=== PATIENT | male | born 1955 | race Caucasian/White ===

== ENCOUNTER 2017-04-18 09:15 | Emergency (ER) | payer SELFPAY ==
[2017-04-18 09:21] VITALS: BP 145/89; PULSE 75; RESP 16; TEMP 98.6; O2SAT 98
--- NOTE | 2017-04-18 09:49 | EDPHY ---
H & P Stated Complaint: unable to urinate since midnight Time Seen by Provider: 04/18/17 09:35 HPI/ROS: CHIEF COMPLAINT: Urinary retention since midnight HISTORY OF PRESENT ILLNESS: 62-year-old male arrives via private vehicle complaining of inability to urinate since midnight. No back or flank pain. No radiculopathy. No saddle anesthesia. No trauma. No new medications. No fever or chills. No genitalia trauma. No perineal pain. No rectal pain. No pain with defecation. Foot drop. PRIMARY CARE PROVIDER: no primary care provider REVIEW OF SYSTEMS: A ten point review of systems was performed and is negative with the exception of the items mentioned in the HPI PAST MEDICAL & SURGICAL HISTORY: No pertinent medical or surgical history SOCIAL HISTORY:nonsmoker PHYSICAL EXAM (Prior to examination, patient consented to physical exam, hands were washed and my usual and customary physical exam procedures followed) 1) GENERAL: Well-developed, well-nourished, alert and oriented. Appears uncomfortable, pacing . 2) HEAD: Normocephalic, atraumatic 3) HEENT: Pupils equal, round, reactive to light bilaterally. Sclera anicteric. 4) NECK: Full range of motion, no meningeal signs. 5) LUNGS: Clear auscultation bilaterally, no wheezes, no rhonchi, no retractions. 6) HEART: Regular rate and rhythm, no murmur, no heave, no gallop. 7) ABDOMEN: No guarding, no rebound, no focal tenderness, negative McBurney's, negative Lacy's, negative Rovsing's, negative peritoneal sign, unable to elicit any abdominal pain on exam 8) MUSCULOSKELETAL: Moving all extremities, no focal areas of tenderness, no obvious trauma. No peripheral edema or discoloration. Patella and Achilles reflexes are strongly equal bilaterally. Strength 5/5 9) BACK: No CVA tenderness, no midline vertebral tenderness, no fluctuance, no step-off, no obvious trauma, no visual or palpable abnormality. 10) SKIN: No rash, no petechiae. 11) : Normal male external genitalia no testicular pain, circumcised, cremasteric reflex present and brisk bilaterally , perineum nontender DIFFERENTIAL DIAGNOSIS: in no particular include but limited to cauda equina, bph, prostatitis - Personal History Current Tetanus/Diphtheria Vaccine: Unsure Current Tetanus Diphtheria and Acellular Pertussis (TDAP): Unsure - Medical/Surgical History Hx Asthma: No Hx Chronic Respiratory Disease: No Hx Diabetes: No Hx Cardiac Disease: No Hx Renal Disease: No Hx Cirrhosis: No Hx Alcoholism: No Hx HIV/AIDS: No Hx Splenectomy or Spleen Trauma: No Other PMH: denies - Social History Smoking Status: Never smoked Constitutional: Initial Vital Signs Temperature (C) 37.0 C 04/18/17 09:18 Heart Rate 75 04/18/17 09:18 Respiratory Rate 16 04/18/17 09:18 Blood Pressure 145/89 H 04/18/17 09:18 O2 Sat (%) 98 04/18/17 09:18 O2 Delivery Mode Room Air Allergies/Adverse Reactions: No Known Allergies Allergy (Unverified 04/18/17 09:18) Home Medications: Medication Instructions Recorded NK [No Known Home Meds] 04/18/17 Medical Decision Making ED Course/Re-evaluation: 9:50 a.m.: Bladder scan revealed greater than 800 cc of urine. Pineda catheter insertion by nursing staff subsequently with 1200 cc of red urine. Patient notes that he eats red beets on regular basis. 10:35 a.m.: Re-evaluation, he is feeling significant relief after Pineda catheter placement. He is requesting catheter be removed. Recommend leave the Pineda catheter in however he requested be removed. This will be removed and he has been informed that he may necessitate further catheter placement if he is unable to urinate spontaneously. 11:15 a.m. Re-evaluation. Patient has no complaints of back pain, is neurologically intact lower extremities. We discussed possible etiologies for his urinary retention. Doubt spinal pathology such as cauda equina. The patient has a Pineda catheter has been removed. He does not feel the need to urinate yet does not want to wait. I have recommend he wait so that we can ensure he is able to urinate spontaneously. He does not want to wait, states that he will return to the ER if he is unable to urinate. I believe him to have decision-making capacity.Care and management in consultation with secondary supervising physician Dr Johnson . - Data Points Laboratory Results: 04/18/17 09:50 Urine Color MADDI Urine Appearance CLEAR Urine pH 6.0 (5.0-7.5) Ur Specific Dille 1.009 (1.002-1.030) Urine Protein NEGATIVE (NEGATIVE) Urine Ketones 1+ H (NEGATIVE) Urine Blood 1+ H (NEGATIVE) Urine Nitrate NEGATIVE (NEGATIVE) Urine Bilirubin NEGATIVE (NEGATIVE) Urine Urobilinogen NEGATIVE EU EU (0.2-1.0) Ur Leukocyte Esterase NEGATIVE (NEGATIVE) Urine RBC 10-15 /hpf H /hpf (0-3) Urine WBC NONE SEEN /hpf /hpf (0-3) Ur Epithelial Cells NONE SEEN /lpf /lpf (NONE-1+) Urine Glucose NEGATIVE (NEGATIVE) Departure - Departure Disposition: Home, Routine, Self-Care Clinical Impression: Urinary retention Condition: Good Instructions: Urinary Retention in Men (ED) Additional Instructions: Return to the emergency department immediately if you develop back pain, fevers , inability urinate, testicular pain or any other symptoms that concern Referrals: Venancio Antony MD [Medical Doctor] - 04/21/17 (Dr. Antony Is a urologist)
[2017-04-18 09:59] LABS: COLOR AMBER; LEUKOCYTE ESTERASE,URINE NEGATIVE (NEGATIVE); NITRITE,URINE NEGATIVE (NEGATIVE)
[2017-04-18 10:10] LABS: WBC,URINE NONE SEEN /hpf (0-3)
== END 2017-04-18 11:31 | disposition home or self-care (01) ==
PROC: 0T9B70Z Drainage of Bladder with Drainage Device, Via Natural or Artificial Opening (ICD-10-PCS; principal; 2017-04-18)
DX: R33.9 Retention of urine, unspecified (principal)

== ENCOUNTER 2017-04-19 07:30 | Emergency (ER) | payer SELFPAY ==
[2017-04-19 07:35] VITALS: TEMP 98.1
--- NOTE | 2017-04-19 07:53 | EDPHY ---
HPI/HX/ROS/PE/MDM Narrative: CHIEF COMPLAINT: Urinary Retention HISTORY OF PRESENT ILLNESS: The patient is a 62-year-old male seen here yesterday with urinary retention who returns today with urinary retention. The patient had a Pineda catheter placed with 1200ccs of fluid drained. The patient requested the Pineda catheter be removed prior to discharge. He was able to urinate a few times at home. He has not been able to urinate at all since last night. He denies fever, flank pain, vomiting, diarrhea, headache, lightheadedness. REVIEW OF SYSTEMS: Aside from elements discussed in the HPI, a comprehensive 10-point review of systems was reviewed and is negative. PAST MEDICAL HISTORY: Denies. SOCIAL HISTORY: Nonsmoker. VITAL SIGNS: Reviewed by me GENERAL: Well-developed, well-nourished, resting comfortably in no respiratory distress. HEENT: Atraumatic. Eyes: No icterus, no injection. Mouth: moist mucous membranes. No erythema or lesions. Neck: supple with no adenopathy. LUNGS: Clear to auscultation bilaterally, no wheezes, rhonchi or rales. CARDIAC: Regular rate and rhythm, no rubs, murmurs or gallops. ABDOMEN: Soft, nontender, nondistended, bowel sounds normal. BACK: No CVA tenderness. EXTREMITIES: No trauma. No edema. Range of motion is normal throughout. NEURO: Alert and oriented, grossly nonfocal. SKIN: Warm and dry, no rash. PSYCHIATRIC: Normal mentation, no agitation. Portions of this note were transcribed by a medical assembly. I personally performed a history, physical exam, medical decision making, and confirmed accuracy of information the transcribed note. ED Course: Bladder scan performed by nursing staff shows 900ccs of fluid. Pineda placed by nursing staff with reported minimal resisted. No urine obtained. With palpation of the bladder, blood began to appear in the catheter but still no urine. The Pineda catheter was removed. 0838: I consulted the urologist, Dr. Antony, he will see the patient in the ED. 0945: Pineda catheter was placed by Dr Antony. UA demonstrates no sign of infection. I will discharge patient home with Pineda in place. He will followup with Dr. Antony. MDM: Diff dx considered included urinary retention, acute renal failure, obstruction , urethral stricture, bph, UTI. - Data Points Laboratory Results: Laboratory Results 04/19/17 08:40 04/19/17 08:40 Medications Given: Discontinued Medications Tamsulosin HCl (Flomax) 0.4 mg PO EDNOW ONE Stop: 04/19/17 09:50 Last Admin: 04/19/17 09:56 Dose: 0.4 mg General Initial Vital Signs: Initial Vital Signs Temperature (C) 36.7 C 04/19/17 07:31 Respiratory Rate 18 04/19/17 07:31 Blood Pressure 136/71 H 04/19/17 07:31 O2 Sat (%) 94 04/19/17 07:31 O2 Delivery Mode Room Air Allergies/Adverse Reactions: No Known Allergies Allergy (Unverified 04/18/17 09:18) Home Medications: Medication Instructions Recorded Tamsulosin HCl [Flomax] 0.4 mg PO DAILY #7 cap 04/19/17 Departure - Departure Disposition: Home, Routine, Self-Care Clinical Impression: Urinary retention Condition: Good Instructions: Urinary Retention in Men (ED), Pineda Catheter Placement and Care (ED) Additional Instructions: 1. Keep Pineda in place until you are seen by Dr. Antony. 2. Take the Flomax as directed. 3. Return to the Emergency Department with urinary complaints, catheter problems , or other complaints. Referrals: Venancio Antony MD [Medical Doctor] - As per Instructions (Urology) Prescriptions: Tamsulosin HCl [Flomax] 0.4 mg PO DAILY #7 cap
[2017-04-19 09:21] LABS: HEMATOCRIT 44.5 % (40.0-51.0); HEMOGLOBIN 15.6 g/dL (13.7-17.5); MEAN CELL HEMOGLOBIN 30.5 pg (27.9-34.1); MEAN CELL HEMOGLOBIN CONCENTR. 35.1 g/dL (32.4-36.7); MEAN CELL VOLUME 87.1 fL (81.5-99.8); RED BLOOD CELL COUNT 5.11 10^6/uL (4.40-6.38)
[2017-04-19 09:37] LABS: ANION GAP 23 mEq/L (8-16); CALCIUM 11.1 mg/dL (8.5-10.4); CARBON DIOXIDE 16 mEq/l (22-31); CHLORIDE 99 mEq/L (97-110); CREATININE 0.9 mg/dL (0.7-1.3); GLOMERULAR FILTRATION RATE > 60; GLUCOSE 111 mg/dL (70-100); POTASSIUM 3.8 mEq/L (3.5-5.2); SODIUM 138 mEq/L (134-144)
[2017-04-19] MEDS ORDERED: TAMSULOSIN HCL 0.4 MG CAP PO ONE (09:49)
[2017-04-19 10:13] VITALS: BP 93/60; PULSE 47; RESP 16; O2SAT 97
[2017-04-19 10:31] LABS: COLOR YELLOW; LEUKOCYTE ESTERASE,URINE NEGATIVE (NEGATIVE); NITRITE,URINE NEGATIVE (NEGATIVE)
[2017-04-19 10:38] LABS: BACTERIA TRACE /hpf (NONE SEEN); MUCUS TRACE /lpf (NONE-1+); RBC,URINE 50-182 /hpf (0-3); WBC,URINE NONE SEEN /hpf (0-3)
--- NOTE | 2017-04-20 20:43 | GCON ---
[f rep st] CONSULTATION DATE OF CONSULTATION: 04/19/2017 REFERRING PHYSICIAN: Kelsie Perez MD REASON FOR REQUEST: Inability to urinate, inability to place catheter. HISTORY OF PRESENT ILLNESS: The patient is a 62-year-old gentleman, who states that he has had inte rmittent trouble with urination for the last several months, however, he has never had this evaluate d. He came to the emergency room on the day prior to this evaluation with inability to urinate. He had a Pineda catheter placed. Reportedly, 1200 ml of urine came out. Patient elected to have the c atheter removed prior to discharge. He was not discharged on any antibiotics or alpha blockers. He states he was able to urinate a small amount yesterday, however, since then he has not been able to urinate al all. He now presents with worsening abdominal distention and pain. Nursing staff attem pted to place a Pineda catheter, but only got blood in return. Patient has no known history of prost ate cancer, no prior prostate surgery, and no other urologic concerns. PAST MEDICAL HISTORY: Reviewed and summarized in the [facility] electronic medical record. PAST SURGICAL HISTORY: Reviewed and summarized in the [facility] electronic medical record. FAMILY HISTORY: Reviewed and summarized in the [facility] electronic medical record. MEDICATIONS: Reviewed and summarized in the [facility] electronic medical record. REVIEW OF SYSTEMS: Negative other than above. PHYSICAL EXAMINATION: VITAL SIGNS: He is afebrile with stable vital signs. GENERAL: He is visibl y uncomfortable due to his bladder distention. HEENT: Head is normocephalic, atraumatic. Eyes, ea rs, nose and throat within normal limits. He has no increased respiratory effort. HEART: Regular. ABDOMEN: Soft, protuberant. The bladder is full to palpation. GENITOURINARY: Reveals some oozi ng from the urethra. Normal bilateral descended testicles. EXTREMITIES: No cyanosis, clubbing or edema. IMPRESSION: Urinary retention, likely secondary to benign prostatic hypertrophy, inability to place Pineda catheter likely secondary to Pineda catheter trauma. PLAN: A 16-Serbian Pineda catheter was placed at the bedside by myself. This was complicated by val ent's anatomy, as well as the multiple prior attempts at placing a catheter without success. Ultima tely, we got return of clear urine and the balloon was inflated. I strongly encouraged him to renetta nue this catheter for at least a week to allow for any prostatic inflammation to resolve. I also re commended that he be discharged home on tamsulosin 0.4 mg to be taken nightly. Dr. Perez has agr eed to make arrangements for this, will follow up with him in the office for voiding trial, for furt her assessment and treatment. /[id number]/MODL
== END 2017-04-19 11:41 | disposition home or self-care (01) ==
PROC: 0T9B70Z Drainage of Bladder with Drainage Device, Via Natural or Artificial Opening (ICD-10-PCS; principal; 2017-04-19)
DX: R33.9 Retention of urine, unspecified (principal)

== ENCOUNTER 2017-04-25 05:00 | Emergency (ER) | payer SELFPAY ==
[2017-04-25 05:14] VITALS: TEMP 98.1
[2017-04-25] MEDS ORDERED: LIDOCAINE 2% JELLY 20 ML (UROJECT) ONE (05:33)
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
[2017-04-25 06:47] LABS: COLOR AMBER; LEUKOCYTE ESTERASE,URINE 2+ (NEGATIVE); NITRITE,URINE POSITIVE (NEGATIVE)
[2017-04-25 06:49] VITALS: BP 104/71; PULSE 53; RESP 16; O2SAT 98
[2017-04-25 06:54] LABS: MUCUS TRACE /lpf (NONE-1+); RBC,URINE 50-182 /hpf (0-3); WBC,URINE 50-182 /hpf (0-3)
== END 2017-04-25 06:49 | disposition home or self-care (01) ==
PROC: 0T9B70Z Drainage of Bladder with Drainage Device, Via Natural or Artificial Opening (ICD-10-PCS; principal; 2017-04-25)
DX: R33.9 Retention of urine, unspecified (principal)

== ENCOUNTER 2017-04-25 14:48 | Emergency (ER) | payer SELFPAY ==
[2017-04-25 14:55] VITALS: TEMP 98.4
--- NOTE | 2017-04-25 15:41 | EDPHY ---
H & P Stated Complaint: URINARY RETENTION/COCHRAN PLACED IN ED/PT TOOK IT OUT Time Seen by Provider: 04/25/17 15:30 HPI/ROS: Chief Complaint: Urinary retention HPI: 62-year-old male presenting with urinary retention. Patient was seen here last in retention. Had a catheter placed and then removed there. He came back the following day and required urology to place a catheter. This was removed yesterday. This morning he once again went into urinary retention. He attempted self catheterization at home unsuccessful. He came in here they had some difficulty placing catheter and required evacuation of blood clots. Patient was sent home with a catheter but states that was increasingly uncomfortable at the tip of his penis and the house was not long enough so he chose to remove it himself. Since that time he has been unable to pass any more urine. Denies a prior history of urinary tension prior to a week ago. No fevers or chills. No nausea or vomiting. ROS: 10 point Review of Systems is negative except as noted in the HPI. PMH: Denies Social History: No smoking, no alcohol, no recreational drug use Family History: non-contributory Physical Exam: Gen: Awake, Alert, No Distress HEENT: Nose: no rhinorrhea Eyes: PERRLA, EOMI Mouth: Moist mucosa Neck: Supple, no JVD Chest: nontender, lungs clear to auscultation Heart: S1, S2 normal, no murmur Abd: Distended, non-tender, palpable enlarged urinary bladder Back: no CVA tenderness, no midline tenderness Ext: no edema, non-tender Skin: no rash Neuro: CN II-XII intact, Sensation grossly intact, Strength 5/5 in bilateral upper and lower extremities - Personal History Current Tetanus/Diphtheria Vaccine: No - Medical/Surgical History Hx Asthma: No Hx Chronic Respiratory Disease: No Hx Diabetes: No Hx Cardiac Disease: No Hx Renal Disease: No Hx Cirrhosis: No Hx Alcoholism: No Hx HIV/AIDS: No Hx Splenectomy or Spleen Trauma: No Other PMH: denies - Social History Smoking Status: Never smoked Constitutional: Initial Vital Signs Temperature (C) 36.9 C 04/25/17 14:53 Heart Rate 96 04/25/17 14:53 Respiratory Rate 17 04/25/17 14:53 Blood Pressure 125/91 H 04/25/17 14:53 O2 Sat (%) 96 04/25/17 14:53 O2 Delivery Mode Room Air Allergies/Adverse Reactions: No Known Allergies Allergy (Verified 04/25/17 14:53) Home Medications: Medication Instructions Recorded Tamsulosin HCl [Flomax] 0.4 mg PO DAILY #7 cap 04/19/17 Medical Decision Making ED Course/Re-evaluation: Coude catheter placed by nursing staff without difficulty. He is draining clear urine. Was initially bloody but now draining clear. Patient will be discharged catheter in place instructions follow up with Dr. Jones. Patient has been encouraged not to remove the catheter again. Departure - Departure Disposition: Home, Routine, Self-Care Clinical Impression: Acute retention of urine Condition: Good Instructions: Urinary Retention in Men (ED) Additional Instructions: Follow up with urology in 4-5 days. Return to the ER for increasing pain, fever, chills or any other concerns. Referrals: Dimitri Jones MD [Medical Doctor] - As per Instructions
[2017-04-25] MEDS ORDERED: LIDOCAINE 2% JELLY 20 ML (UROJECT) ONE (16:00)
[2017-04-25 17:27] VITALS: BP 122/76; PULSE 87; RESP 16; O2SAT 98
== END 2017-04-25 17:27 | disposition home or self-care (01) ==
PROC: 0T9B70Z Drainage of Bladder with Drainage Device, Via Natural or Artificial Opening (ICD-10-PCS; principal; 2017-04-25)
DX: R33.9 Retention of urine, unspecified (principal)

== ENCOUNTER 2017-05-01 13:21 | Emergency (ER) | payer SELFPAY ==
--- NOTE | 2017-05-01 14:15 | EDPHY ---
H & P Stated Complaint: Catheter removed 2 hours ago, can't urinate. Time Seen by Provider: 05/01/17 14:06 HPI/ROS: CHIEF COMPLAINT: Urinary retention HISTORY OF PRESENT ILLNESS: The patient has a history of BPH and urinary retention. He has had several Pineda catheters placed over the past several weeks. He followed up with his urologist Dr. Kei Antony today who removed the Pineda catheter. The patient now presents with acute urinary retention. The patient denies any fever, flank pain or vomiting. The patient reports moderate to severe suprapubic pain. REVIEW OF SYSTEMS: A comprehensive 10 point review of systems is otherwise negative aside from elements mentioned in the history of present illness. Source: Patient Exam Limitations: No limitations - Personal History Current Tetanus Diphtheria and Acellular Pertussis (TDAP): No - Medical/Surgical History Hx Asthma: No Hx Chronic Respiratory Disease: No Hx Diabetes: No Hx Cardiac Disease: No Hx Renal Disease: No Hx Cirrhosis: No Hx Alcoholism: No Hx HIV/AIDS: No Hx Splenectomy or Spleen Trauma: No Other PMH: prostate issues. - Social History Smoking Status: Never smoked - Physical Exam Exam: General Appearance: Appears uncomfortable Eyes: Pupils equal and round no pallor or injection ENT, Mouth: Mucous membranes moist Respiratory: There are no retractions, lungs are clear to auscultation Cardiovascular: Regular rate and rhythm Gastrointestinal: Suprapubic fullness and tenderness on exam Neurological: No gross motor deficit appreciated Skin: Warm and dry, no rashes Musculoskeletal: Neck is supple nontender Extremities: symmetrical, full range of motion Constitutional: Initial Vital Signs Temperature (C) 37 C 05/01/17 13:22 Heart Rate 67 05/01/17 13:22 Respiratory Rate 18 05/01/17 13:22 Blood Pressure 140/88 H 05/01/17 13:22 O2 Sat (%) 98 05/01/17 13:22 O2 Delivery Mode Room Air Allergies/Adverse Reactions: No Known Allergies Allergy (Verified 04/25/17 14:53) Home Medications: Medication Instructions Recorded Tamsulosin HCl [Flomax] 0.4 mg PO DAILY #7 cap 04/19/17 Medical Decision Making ED Course/Re-evaluation: A bladder scan was performed in the emergency department which demonstrates a bladder volume of 800 mL. I attempted to place a Pineda catheter and was unsuccessful. I tried both a 10 Grenadian as well as a 18 Grenadian coude. The patient had an IV established. He received 1 mg of Ativan. Consultation was made with Dr. Wilfredo Saucedo from Urology who was able to place a Pineda catheter over a guidewire. The patient tolerated the procedure well. He will be discharged home with a Pineda catheter and follow up with Urology. Patient was re-evaluated by myself at 4:00 p.m.. He reports he is pain free. He will be discharged home with customary aftercare instructions and return precautions. Differential Diagnosis: Differential diagnosis considered includes prostatitis, acute urinary retention - Data Points Medications Given: Discontinued Medications Lorazepam (Ativan Injection) 1 mg IVP EDNOW ONE Stop: 05/01/17 14:47 Last Admin: 05/01/17 15:15 Dose: 1 mg Departure - Departure Disposition: Home, Routine, Self-Care Clinical Impression: Acute urinary retention Condition: Good Instructions: Urinary Retention in Men (ED) Additional Instructions: 1. Please contact your urologist for follow-up. Do not remove Pineda catheter until your urologist direct you to do so. 2. Please return to the ED for fever, vomiting, back pain or other concerns. Referrals: Venancio Andres MD [Medical Doctor] - As per Instructions
[2017-05-01] MEDS ORDERED: LIDOCAINE 2% JELLY 20 ML (UROJECT) ONE ×2 (14:27→15:18)
[2017-05-01] MEDS ORDERED: LORazepam 2 MG/ML INJ IVP ONE (14:46)
[2017-05-01] MEDS ORDERED: LORazepam 2 MG/ML INJ ONE (15:35)
--- NOTE | 2017-05-01 15:37 | PDCONSULT ---
Clipper Machine Note: Asked to see pt for urinary retention. complex hx and multiple visits to the ER for this issue. Pineda removed this am and can not void. Reviewed all of his charts and records from office and ED. 18 cath placed with guide and drained >1000 ml Recommended follow up for cysto and UDS as out patient. Wilfredo Saucedo M.D.
--- NOTE | 2017-05-01 15:56 | GCON ---
[f rep st] CONSULTATION DATE OF CONSULTATION: 05/01/2017 HISTORY OF PRESENT ILLNESS: I have been asked to see this gentleman by the emergency room staff, Dr Edgardo Thomas, because of urinary retention. By history, the patient had his catheter removed th morning at Dr. Antony's office and he was instructed that he should undergo cystoscopy and urody namics, but at the present time he elected not to and was to perform intermittent catheterization. He has had several Pineda catheters placed over the past several weeks, and at the present time he is writhing in pain, walking around complaining he has to void, he has severe suprapubic pain, and marlene o feels he has to defecate. He is somewhat appropriately unreasonable in the discussion because of his discomfort. REVIEW OF SYSTEMS: Negative cardiac, respiratory, GI and endocrine. PHYSICAL EXAM: VITAL SIGNS: Stable. HEAD, EARS, EYES, NOSE, THROAT: Normal. His eyes are normal , without jaundice. GENERAL: He is on his cell phone, grasping it in his hand, texting. NECK: Cruz pple. HEART: Regular rate and rhythm. RESPIRATORY: No labored breathing. ABDOMEN: Somewhat ten se because of the distended bladder, but no rebound is noted. LOWER EXTREMITIES: Has lower extremi ty edema bilaterally, right greater than left. : At the present time, he has had the catheter pl aced, and it was a complicated catheter placement. /[id number]/MODL
[2017-05-01 15:57] VITALS: BP 102/61; PULSE 76; RESP 16; TEMP 98.1; O2SAT 96
--- NOTE | 2017-05-01 16:01 | GPN ---
[f rep st] PROCEDURE NOTE DATE OF PROCEDURE: 05/01/2017 PROCEDURE: Complex catheterization. PREPROCEDURE DIAGNOSIS: Urinary retention. POSTPROCEDURE DIAGNOSIS: Urinary retention. DESCRIPTION OF PROCEDURE: After being prepped and draped in normal sterile fashion, the patient had edematous urethra and blood per penis, and there had been multiple attempts at catheterization unsu ccessfully. At that point, I was able to do a prep and drape in normal fashion. Urojet [address] d in his urethra, and I was able to pass 18 Pineda catheter with a Mandarin catheter guide in place, and it passed quite easily, without any significant suggestion of urethral stricture or false passag e. A 20 cc balloon was inflated, and the urine was clear. Toward the end, he had a bit of blood. At the present time, he will be discharged home and have followup with Urology. I highly recommend he have urodynamics and cystoscopy in the future and not undergo the inconvenience of having urinary retention and multiple attempts at catheterization in the future until he has his problem identifie d and recommendations offered to correct it. /[id number]/MODL
== END 2017-05-01 16:37 | disposition home or self-care (01) ==
PROC: 0T9B70Z Drainage of Bladder with Drainage Device, Via Natural or Artificial Opening (ICD-10-PCS; principal; 2017-05-01)
DX: R33.9 Retention of urine, unspecified (principal)
CPT/HCPCS: 96374; J2060